=== PATIENT | male | born 1990 | race Two or more races ===

== ENCOUNTER 2021-01-26 06:11 | Outpatient (CLI) | payer OTHER | END 2021-01-26 06:12 | disposition home or self-care (01) | LOC: LAB 06:11 | PROVIDERS: ATTEND Internal Medicine Hematology & Oncology | DX: R19.6 Halitosis (principal); D50.8 Other iron deficiency anemias; R79.89 Other specified abnormal findings of blood chemistry; I10 Essential (primary) hypertension; R74.02 Elevation of levels of lactic acid dehydrogenase [LDH]; K76.89 Other specified diseases of liver; D55.0 Anemia due to glucose-6-phosphate dehydrogenase [G6PD] deficiency; D63.8 Anemia in other chronic diseases classified elsewhere; E03.8 Other specified hypothyroidism; D72.818 Other decreased white blood cell count; D51.3 Other dietary vitamin B12 deficiency anemia ==